=== PATIENT | female | born 1975 | race Caucasian/White ===

== ENCOUNTER 2017-07-16 09:28 | Emergency (ER) | payer OTHER ==
[2017-07-16 09:42] VITALS: BP 137/81
[2017-07-16] MEDS ORDERED: Acetaminophen TAB* 325 MG PO ONE (10:50)
--- NOTE | 2017-07-16 10:56 | UC ---
Throat Pain/Nasal Oswaldo HPI - HPI Summary HPI Summary: 2 weeks of left maxillary sinus pain-seen dentist how help see was grinding her teeth they took x-ray and see no abscess or cavity per the patient - History of Current Complaint Chief Complaint: UCGeneralIllness Stated Complaint: RESP ISSUE Time Seen by Provider: 07/16/17 10:47 Hx Obtained From: Patient Hx Last Menstrual Period: Now ?: No Onset/Duration: Gradual Onset, Lasting Weeks Severity: Moderate Pain Intensity: 6 Pain Scale Used: 0-10 Numeric Cough: None Related History: Smoking - Allergies/Home Medications Allergies/Adverse Reactions: Allergies Allergy/AdvReac Type Severity Reaction Status Date / Time Ibuprofen Allergy Severe Difficulty Verified 07/16/17 09:42 Breathing Penicillins Allergy Severe Anaphylatic Verified 07/16/17 09:42 Shock Naltrexone AdvReac See Comment Verified 07/16/17 09:42 Home Medications: Home Medications Bupropion XL* [Wellbutrin XL *] 150 mg PO DAILY 07/16/17 [History Confirmed 05/23] DULoxetine DR CAP* [Cymbalta CAP*] 60 mg PO DAILY 07/16/17 [History Confirmed ] PMH/Surg Hx/FS Hx/Imm Hx Previously Healthy: Yes Psychological History: Depression Other History Of: Negative For: Anticoagulant Therapy - Surgical History Surgical History: Yes Surgery Procedure, Year, and Place: CYST REMOVAL - Family History Known Family History: Positive: Diabetes Family History: NON CONTRIBUTORY - Social History Occupation: Employed Part-time Lives: With Family Alcohol Use: None Alcohol Amount: stopped alcohol 10/2016, stopped Herion 2015 Substance Use Type: None Substance Use Comment - Amount & Last Used: Hx of abuse, clean for months Smoking Status (MU): Current Every Day Smoker Type: Cigarettes Amount Used/How Often: 4 cig./day - Immunization History Most Recent Influenza Vaccination: NONE Most Recent Tetanus Shot: UNK Most Recent Pneumonia Vaccination: "years ago" Review of Systems Constitutional: Negative Skin: Negative Eyes: Negative ENT: Negative, Sinus Pain/Tenderness - left maxillary tenderness Respiratory: Negative Cardiovascular: Negative Gastrointestinal: Negative Genitourinary: Negative Motor: Negative Neurovascular: Negative Musculoskeletal: Negative Neurological: Negative Psychological: Negative Is Patient Immunocompromised?: No All Other Systems Reviewed And Are Negative: Yes Physical Exam Triage Information Reviewed: Yes Appearance: Well-Appearing, No Pain Distress, Well-Nourished Vital Signs: Initial Vital Signs Temp 97.9 F 07/16/17 09:36 Pulse 104 07/16/17 09:36 Resp 20 07/16/17 09:36 BP 137/81 07/16/17 09:36 Pulse Ox 100 07/16/17 09:36 Vital Signs Reviewed: Yes Eye Exam: Normal Eyes: Positive: Conjunctiva Clear ENT Exam: Normal ENT: Positive: Normal ENT inspection, Hearing grossly normal, Pharynx normal, TMs normal, Sinus tenderness - left maxillary pain, Uvula midline. Negative: Nasal congestion, Nasal drainage, Tonsillar swelling, Tonsillar exudate, Trismus , Muffled voice, Hoarse voice Dental Exam: Normal Neck exam: Normal Neck: Positive: Supple, Nontender, No Lymphadenopathy Respiratory Exam: Normal Respiratory: Positive: Chest non-tender, Lungs clear, Normal breath sounds, No respiratory distress, No accessory muscle use Cardiovascular Exam: Normal Cardiovascular: Positive: RRR, No Murmur, Pulses Normal, Brisk Capillary Refill Musculoskeletal Exam: Normal Musculoskeletal: Positive: Strength Intact, ROM Intact, No Edema Neurological Exam: Normal Neurological: Positive: Alert, Muscle Tone Normal Psychological Exam: Normal Skin Exam: Normal Diagnostics - Radiology No standard instances Xray Interpretation: Positive (See Comments) - incidental finding of a amee lesion not seen in ct of 2016 Radiology Interpretation Completed By: Radiologist Throat Pain/Nasal Course/Dx - Course Assessment/Plan: flonase, tylenol, follow with [place] Guerrero a mouth guard for teeth grinding - Differential Dx/Diagnosis Provider Diagnoses: Facial pain (left maxilla area) amee lesion Discharge - Discharge Plan Condition: Stable Disposition: HOME Prescriptions: Fluticasone NASAL SPRAY 50MCG* [Flonase NASAL SPRAY 50MCG*] 2 spray BOTH NARES DAILY #1 btl Patient Education Materials: Atypical Facial Pain (ED) Referrals: Derrek Fontaine MD [Primary Care Provider] - 1 Week
--- NOTE | 2017-07-16 11:55 | RAD ---
Indication: Oral pain. Shooting and throbbing pain worse at night. Congestion, sneezing, coughing. Comparison: April 05, [address] Technique: Noncontrast CT paranasal sinuses with multiplanar reformation. Report: Artifact from dental amalgam. 1.9 cm AP by 2.7 cm transverse heterogeneous density lesion at the amee with significant central and peripheral hyperdensity. Negative for significant mass effect with the surrounding basal cisterns and fourth ventricle preserved. This lesion is new compared with the April 05, [address] Clear paranasal sinuses. Patent infundibula of the anterior ostiomeatal units. Negative for septal deviation. Patent choana and unremarkable nasopharyngeal mucosal space contours. Unremarkable orbital contents. No suggestion of inflammatory or neoplastic osseous lesions within the [id number]. IMPRESSION: 1. Negative for paranasal sinus disease. 2. Incidental indeterminant lesion at the amee without mass effect although new compared with the April 05, 2016 CT. Contrast-enhanced MRI of the brain suggested for further assessment.
== END 2017-07-16 12:23 | disposition home or self-care (01) ==
LOC: UCEAST 09:28
DX: G50.1 Atypical facial pain (principal); G93.9 Disorder of brain, unspecified; F32.9 Major depressive disorder, single episode, unspecified; Z88.6 Allergy status to analgesic agent; Z88.0 Allergy status to penicillin; F17.210 Nicotine dependence, cigarettes, uncomplicated
CPT/HCPCS: 70486; 99212; A9270-GY; G0463

== ENCOUNTER 2019-05-25 00:32 | Emergency (ER) | payer MEDICARE, MEDICAID ==
--- NOTE | 2019-05-25 00:42 | ED ---
Psychiatric Complaint - HPI Summary HPI Summary: 44-year-old with a significant past medical history of heroin and alcohol abuse, alcoholic hepatitis, depression, suicidal ideation and depression presents to the emergency department today with suicidal ideation. She states the last 2 days she is felt suicidal and had thoughts of killing herself and called an ambulance to come to the emergency department for mental health evaluation as she felt she would hurt herself at home. States she does not have a plan to kill herself. She denies homicidal ideation. She states she s felt significantly more depressed since she had a stroke 4 years ago. She endorses at self-harm including cutting. She says she recently inflicted a small superficial wound to her left wrist 2 days ago. She denies smoking or recreational drug use. She admits to having a few drinks yesterday. She believes she will not go into alcohol withdrawal during this visit. Prior to arrival she told EMS she had palpitations but she feels asymptomatic upon arrival to the emergency department. She denies recent medication changes. She states she lives at home with her and that there are firearms at home. She denies any physical pain or fever, chest pain, abdominal pain, rash. - History Of Current Complaint Time Seen by Provider: 05/25/19 00:41 Hx Obtained From: Patient Hx Last Menstrual Period: Now Onset/Duration: Gradual Onset Timing: Constant Severity Initially: Severe Severity Currently: Severe Character: Depressed, Fearful, Anxious Aggravating Factor(s): Recent Stress Alleviating Factor(s): Nothing Associated Signs And Symptoms: Positive: Sleep Disturbance, Social Withdrawal Related History: Positive For: Prior Psychiatric Issues Has Suicidal: Reports: Thoughts, Demonstrates Gesture, Has Prior Attempt(s) Has Homicidal: Denies: Thoughts, With A Plan, Demonstrates Gesture - Risk Factor(s) Completed Suicide Risk Factors: White [place] Citizen - Allergies/Home Medications Allergies/Adverse Reactions: Allergies Allergy/AdvReac Type Severity Reaction Status Date / Time MS Ibuprofen [Ibuprofen] Allergy Severe Difficulty Verified 07/16/17 09:42 Breathing MS Penicillins [Penicillins] Allergy Severe Anaphylatic Verified 07/16/17 09:42 Shock MS Naltrexone [Naltrexone] AdvReac See Comment Verified 07/16/17 09:42 PMH/Surg Hx/FS Hx/Imm Hx Endocrine/Hematology History: Reports: Hx Diabetes - type 2 - diet controlled Denies: Hx Anticoagulant Therapy, Hx Thyroid Disease Cardiovascular History: Denies: Hx Hypertension, Hx Pacemaker/ICD Respiratory History: Denies: Hx Asthma, Hx Chronic Obstructive Pulmonary Disease (COPD) GI History: Reports: Other GI Disorders - ETOH Hepatitis Denies: Hx Ulcer History: Denies: Hx Dialysis, Hx Renal Disease Sensory History: Reports: Hx Contacts or Glasses Denies: Hx Hearing Aid Opthamlomology History: Reports: Hx Contacts or Glasses Neurological History: Denies: Hx Dementia, Hx Seizures, Other Neuro Impairments/Disorders Psychiatric History: Reports: Hx Depression, Hx Substance Abuse Denies: Hx Panic Disorder - Surgical History Surgery Procedure, Year, and Place: CYST REMOVAL Infectious Disease History: Denies: Hx Clostridium Difficile, Hx Hepatitis, Hx Human Immunodeficiency Virus (HIV), Hx of Known/Suspected MRSA, Hx Shingles, Hx Tuberculosis, Hx Known/ Suspected VRE, Hx Known/Suspected VRSA, History Other Infectious Disease - Family History Known Family History: Positive: Diabetes Family History: NON CONTRIBUTORY - Social History Alcohol Use: None Alcohol Amount: stopped alcohol 10/2016, stopped Herion 2015 Hx Substance Use: Yes Substance Use Type: Reports: None Substance Use Comment - Amount & Last Used: Hx of abuse, clean for months Hx Tobacco Use: Yes Smoking Status (MU): Current Every Day Smoker Type: Cigarettes Amount Used/How Often: 4 cig./day Review of Systems Constitutional: Negative Eyes: Negative Cardiovascular: Negative Respiratory: Negative Gastrointestinal: Negative Genitourinary: Negative Musculoskeletal: Negative Skin: Negative Neurological: Negative Psychological: Normal All Other Systems Reviewed And Are Negative: Yes Physical Exam Triage Information Reviewed: Yes Vital Signs Reviewed: Yes Appearance: Positive: Well-Appearing, No Pain Distress, Well-Nourished, Obese Skin: Positive: Warm, Skin Color Reflects Adequate Perfusion Head/Face: Positive: Normal Head/Face Inspection Eyes: Positive: EOMI, OLIVER, Other: - Patient has anisocoria which she states she is always had. Her left pupil is larger than the right pupil. ENT: Positive: Hearing grossly normal Respiratory/Lung Sounds: Positive: Clear to Auscultation, Breath Sounds Present Cardiovascular: Positive: RRR, S1, S2 Abdomen Description: Positive: Nontender Bowel Sounds: Positive: Present Neurological: Positive: Sensory/Motor Intact, Alert, Oriented to Person Place, Time, Normal Gait, Speech Normal Psychiatric: Positive: Normal, Affect/Mood Appropriate, Other - Patient makes good eye contact during conversation. AVPU Assessment: Alert Procedures - Sedation Patient Received Moderate/Deep Sedation with Procedure: No Diagnostics - Laboratory Result Diagrams: 05/25/19 00:51 05/25/19 00:51 Lab Statement: Any lab studies that have been ordered have been reviewed, and results considered in the medical decision making process. Course/Dx - Course Course Of Treatment: Patient was evaluated in the emergency department today for suicidal ideation. The patient was seen and examined. Due to the patient' s complaint of palpitations on arrival to the emergency department an EKG was done which showed sinus tachycardia at a rate of 108 bpm. Normal axis with no ST elevation or T-wave inversion. There are Q waves in the inferior leads however these are unchanged when compared to prior EKG done on April 09, 2016. upon arrival to the emergency department she was placed in a safe room. She was placed under constant observation. She was changed into hospital scrubs and her valuables were collected and put in a locked box. Laboratory studies including urinalysis and toxicology were ordered for medical clearance. Laboratory results returned showing no evidence for leukocytosis with a white blood cell count of 4.1. 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 She has mild electrolyte disturbances such as a sodium of 133, potassium of 3.3, chloride of 93. She is currently asymptomatic electrolyte abnormalities. She has an anion gap of 17 which is likely due to her blood alcohol level of 387. Her AST is 194 and her ALP is 119 which are elevated however these are also her baseline. The rest for toxicology screening came back as negative. She was medically cleared for evaluation but must be observed for approximately 15 hours in order to be legally sober and qualified for mental health evaluation. Patient was signed out to Dr. Ventura Abbott at 0216 this morning. - Differential Dx/Clinical Impression Differential Diagnosis/HQI/PQRI: Positive: Acute Psychosis, Alcohol Intoxication , Anxiety, Depression, Suicidal Ideation, Suicidal Gesture Provider Diagnosis: Depression Discharge ED - Sign-Out/Discharge Documenting (check all that apply): Sign-Out Patient Signing out patient TO: Ventura Abbott Receiving patient FROM: Kaz Madden - Discharge Plan Condition: Stable Referrals: Julita Mcdaniel MD [Primary Care Provider] - - Billing Disposition and Condition Condition: STABLE
[2019-05-25 00:56] LABS: ABS Lymphocytes 1.6 10^3/ul (1.0-4.8); ABS Monocytes 0.4 10^3/ul (0-0.8); Eosinophil % 0.6 %; Hematocrit 42 % (35-47); Hemoglobin 14.5 g/dL (12.0-16.0); Lymphocyte % 40.3 %; Mean Corpuscular HGB Conc 35 g/dL (31-36); Mean Corpuscular Hemoglobin 36 pg (27-31); Mean Corpuscular Volume 104 fL (80-97); Platelet Count 115 10^3/uL (150-450); Red Blood Count 4.02 10^6 /uL (3.70-4.87); Red Cell Distribution Width 13 % (10-15); White Blood Count 4.1 10^3/uL (3.5-10.8)
[2019-05-25 01:24] LABS: ALT 119 U/L (7-52); AST 194 U/L (13-39); Acetaminophen < 15 mcg/mL; Albumin 4.1 g/dL (3.2-5.2); Albumin/Globulin Ratio 1.1 (1-3); Alcohol 387 mg/dL (<10); Alkaline Phosphatase 90 U/L (34-104); Anion Gap 17 mmol/L (2-11); BUN/Creatinine Ratio 6.5 (8-20); Blood Urea Nitrogen 4 mg/dL (6-24); CO2 Carbon Dioxide 23 mmol/L (22-32); Calcium 8.7 mg/dL (8.6-10.3); Chloride 93 mmol/L (101-111); EGFR African American 127.1 (>60); EGFR Non-African American 105.1 (>60); Globulin 3.9 g/dL (2-4); Glucose 88 mg/dL (70-100); Potassium 3.3 mmol/L (3.5-5.0); Salicylate < 2.50 mg/dL (<30); Sodium 133 mmol/L (135-145)
[2019-05-25 01:38] LABS: TSH (Thyroid Stimulating Horm) 1.56 mcIU/mL (0.34-5.60)
[2019-05-25 02:15] LABS: Urine Appearance Cloudy; Urine Bilirubin Negative (Negative); Urine Blood 3+ (Negative); Urine Color Yellow; Urine Glucose Negative (Negative); Urine Ketones 2+ (Negative); Urine Nitrite Negative (Negative); Urine Protein Negative (Negative); Urine Specific Gravity 1.004 (1.010-1.030); Urine Urobilinogen Negative (Negative)
[2019-05-25 02:18] LABS: Urine Bacteria 1+ (Absent); Urine Red Blood Cell Trace(0-2/hpf) (Absent); Urine Squamous Epithelial Cell Present (Absent); Urine White Blood Cell Trace(0-5/hpf) (Absent)
--- NOTE | 2019-05-25 02:22 | ED ---
Progress - Progress Note Progress Note: Pt is a signout from LYUDMILA Bull, pending E clearance. Course/Dx - Course Course Of Treatment: Pt is a signout from LYUDMILA Bull, pending MHE clearance. Pt will be signed out to Dr. Uriarte at 0700 pending E clearance. - Diagnoses Provider Diagnoses: Alcohol abuse Discharge ED - Sign-Out/Discharge Documenting (check all that apply): Sign-Out Patient, Receiving Sign-Out Signing out patient TO: Kathie Uriarte Receiving patient FROM: Kaz Madden - Discharge Plan Condition: Stable Disposition: HOME Referrals: Julita Mcdaniel MD [Primary Care Provider] - - Billing Disposition and Condition Condition: STABLE Disposition: Home - Attestation Statements Document Initiated by Natalyaibe: Yes Documenting Scribe: Shannan Long Provider For Whom Paige is Documenting (Include Credential): Ventura Abbott MD. Scribe Attestation: Shannan Ferrer scribed for Ventura Abbott MD. on 05/25/19 at 1840. Scribe Documentation Reviewed: Yes Provider Attestation: The documentation as recorded by the Shannan landin accurately reflects the service I personally performed and the decisions made by , Ventura Abbott MD. Status of Scribe Document: Viewed
[2019-05-25 02:40] LABS: Urine Benzodiazepine Screen None Detected (None Detect); Urine Opiates Screen None Detected (None Detect)
[2019-05-25] MEDS: Nicotine* 2MG (FRUIT FLAVOR) GUM PO PRN ×2 (02:49→08:50)
--- NOTE | 2019-05-25 07:36 | ED ---
Progress - Progress Note Progress Note: Pt is received as a sign out from at 0700 05/25/19 shift change pending medical clearance and mental health evaluation. Patient sober and appropriate for evaluation at 11 am 1420 - Patient's case was reviewed by Dr. Menard. Patient will be discharged to home with Dx of alcohol abuse. Course/Dx - Course Course Of Treatment: Pt is a signout from LYUDMILA Bull, pending MHE clearance. Pt will be signed out to Dr. Uriarte at 0700 pending MHE clearance. Patient was medically cleared and received MHE. 1420 - Patient's case was reviewed by Dr. Menard. Patient will be discharged to home with Dx of alcohol abuse. - Diagnoses Provider Diagnoses: Alcohol abuse - Provider Notifications Discussed Care Of Patient With: Caleb Menard Time Discussed With Above Provider: 14:20 Instructed by Provider To: Other - 1420 - Patient's case was reviewed by Dr. Menard. Patient will be discharged to home with Dx of alcohol abuse. Discharge ED - Sign-Out/Discharge Documenting (check all that apply): Patient Departure - discharge - Discharge Plan Condition: Stable Disposition: HOME Referrals: Julita Mcdaniel MD [Primary Care Provider] - - Billing Disposition and Condition Condition: STABLE Disposition: Home - Attestation Statements Document Initiated by Paige: Yes Documenting Scribe: KAT ADRIAN Provider For Whom Paige is Documenting (Include Credential): ISAI URIARTE MD Scribe Attestation: KAT Ferrer, scribed for ISAI URIARTE MD on 05/25/19 at 1436. Scribe Documentation Reviewed: Yes Provider Attestation: The documentation as recorded by the KAT landin accurately reflects the service I personally performed and the decisions made by , ISAI URIARTE MD Status of Scribe Document: Viewed
[2019-05-25 15:06] VITALS: BP 148/92
== END 2019-05-25 15:05 | disposition home or self-care (01) ==
LOC: ED 00:32
DX: F10.10 Alcohol abuse, uncomplicated (principal); E11.9 Type 2 diabetes mellitus without complications; F32.9 Major depressive disorder, single episode, unspecified; F17.210 Nicotine dependence, cigarettes, uncomplicated; Z88.6 Allergy status to analgesic agent; Z88.0 Allergy status to penicillin; Z88.8 Allergy status to other drugs, medicaments and biological substances; Z86.73 Personal history of transient ischemic attack (TIA), and cerebral infarction without residual deficits; Z79.899 Other long term (current) drug therapy
CPT/HCPCS: 36415; 80053; 80307; 80320; 80329; 81003; 81015; 84443; 85025; 87086; 93005; 99285; A9270-GY; G0480

== ENCOUNTER 2019-07-01 10:04 | Inpatient (IN) | payer MEDICARE, MEDICAID ==
--- NOTE | 2019-07-01 10:42 | ED ---
Skin Complaint - HPI Summary HPI Summary: The patient is a 44 y/o F [facility] by female with a chief complaint of yellow tinting of the skin and eyes onset eleven days ago. She reports that she has a history of alcoholism and last drank thirteen days ago but had been drinking since the beginning of May when she found a stash of alcohol in her house, and she would take swigs of the alcohol throughout the day. Two days following her last drink, she noticed that her skin became jaundiced and pruritic, and her urine is brown in appearance. She endorses lethargy, but she denies any pale stools, abdominal pain, nausea, vomiting, CP, SOB, cough, fevers, or chills. PMHx: DM, central pontine myelinolysis, hepatitis due to alcohol abuse, depression. Current every day smoker, EtOH abuse, history of heroin use. Medications reviewed. Allergies noted. - History of Current Complaint Chief Complaint: EDGeneral Time Seen by Provider: 07/01/19 10:33 Stated Complaint: DETOX SYMPTOMS PER PT Hx Obtained From: Patient Hx Last Menstrual Period: Now Onset/Duration: Started Days Ago - 11, Still Present Skin Exposure Onset/Duration: Days Ago Timing: Constant Onset Severity: Mild Current Severity: Moderate Pain Intensity: 0 Pain Scale Used: 0-10 Numeric Skin Location: Diffuse, Other: - eyes Character: Pruritus Aggravating Symptom(s): Nothing Alleviating Symptom(s): Nothing Associated Signs & Symptoms: Negative Related History: Other: - alcohol abuse - Additional Pertinent History Primary Care Physician: [id number] - Allergy/Home Medications Allergies/Adverse Reactions: Allergies Allergy/AdvReac Type Severity Reaction Status Date / Time ibuprofen Allergy Difficulty Verified 07/01/19 10:07 Breathing naltrexone Allergy Shortness Verified 07/01/19 10:07 of Breath Penicillins Allergy Anaphylatic Verified 07/01/19 10:07 Shock PMH/Surg Hx/FS Hx/Imm Hx Endocrine/Hematology History: Reports: Hx Diabetes - type 2 - diet controlled Denies: Hx Anticoagulant Therapy, Hx Thyroid Disease Cardiovascular History: Denies: Hx Hypertension, Hx Pacemaker/ICD Respiratory History: Denies: Hx Asthma, Hx Chronic Obstructive Pulmonary Disease (COPD) GI History: Reports: Other GI Disorders - ETOH Hepatitis Denies: Hx Ulcer History: Denies: Hx Dialysis, Hx Renal Disease Sensory History: Reports: Hx Contacts or Glasses Denies: Hx Hearing Aid Opthamlomology History: Reports: Hx Contacts or Glasses Neurological History: Reports: Other Neuro Impairments/Disorders - central pontine myelinolysis Denies: Hx Dementia, Hx Seizures Psychiatric History: Reports: Hx Depression, Hx Substance Abuse Denies: Hx Eating Disorder, Hx Panic Disorder, Hx of Violent Episodes Against Others - Surgical History Surgical History: Yes Surgery Procedure, Year, and Place: CYST REMOVAL Infectious Disease History: No Infectious Disease History: Denies: Hx Clostridium Difficile, Hx Hepatitis, Hx Human Immunodeficiency Virus (HIV), Hx of Known/Suspected MRSA, Hx Shingles, Hx Tuberculosis, Hx Known/ Suspected VRE, Hx Known/Suspected VRSA, History Other Infectious Disease, Traveled Outside the [place] in Last 30 Days - Family History Known Family History: Positive: Diabetes - Social History Alcohol Use: Occasionally Alcohol Amount: history of alcoholism, last use 06/28/19 Hx Substance Use: Yes Substance Use Type: Reports: None Substance Use Comment - Amount & Last Used: Hx of abuse, clean for months Hx Tobacco Use: Yes Smoking Status (MU): Current Every Day Smoker Type: Cigarettes Amount Used/How Often: 4 cig./day Review of Systems Positive: Other - lethargy. Negative: Fever, Chills Positive: Other - yellow-tinting to eyes Negative: Chest Pain Negative: Shortness Of Breath, Cough Negative: Abdominal Pain, Vomiting, Nausea Positive: other - brown urine Negative: Other - pale stool Positive: Other - yellow tinting to skin, pruritic skin All Other Systems Reviewed And Are Negative: Yes Physical Exam - Summary Physical Exam Summary: Constitutional: Well-developed, Well-nourished, Alert. (-) Distressed Skin: Warm, Dry, Jaundiced HENT: Normocephalic; Atraumatic Eyes: Scleral icterus Neck: Musculoskeletal ROM normal neck. (-) JVD, (-) Stridor, (-) Tracheal deviation Cardio: Rhythm regular, rate normal, Heart sounds normal; Intact distal pulses; The pedal pulses are 2+ and symmetric. Radial pulses are 2+ and symmetric. (-) Murmur Pulmonary/Chest wall: Effort normal. (-) Respiratory distress, (-) Wheezes, (-) Rales Abd: Soft, (-) tenderness, (+) Mild distension, (-) Guarding, (-) Rebound Musculoskeletal: (+) 1+ Pitting edema Lymph: (-) Cervical adenopathy Neuro: Alert, Oriented x3 Psych: Mood and affect Normal Triage Information Reviewed: Yes Vital Signs On Initial Exam: Initial Vitals Temp Pulse Resp BP Pulse Ox 97.6 F 106 16 115/74 95 07/01/19 10:06 07/01/19 10:06 07/01/19 10:06 07/01/19 10:06 07/01/19 10:06 Vital Signs Reviewed: Yes Procedures - Sedation Patient Received Moderate/Deep Sedation with Procedure: No Diagnostics - Vital Signs Vital Signs Temp Pulse Resp BP Pulse Ox 07/01/19 10:06 97.6 F 106 16 115/74 95 - Laboratory Result Diagrams: 07/01/19 10:40 07/01/19 20:13 Lab Statement: Any lab studies that have been ordered have been reviewed, and results considered in the medical decision making process. - CT Abd/Pel CT CT Interpretation Completed By: Radiologist Summary of CT Findings: Impression: 1. Small dependent bilateral lower lobe infiltrates and small right pleural effusion. 2. Enlarged heterogeneous liver with scattered areas of decreased attenuation consistent with diffuse hepatocellular disease. There is with some mass effect on the inferior vena cava and hepatic veins suggesting the possibility of hepatitis or a mass. This can be further evaluated with an MRI of the liver without and with contrast. 3. The portal vein is enlarged although no portal vein thrombosis is seen to correlate with the prior ultrasound findings which may have been artifactual due to slow flow. 4. Small to moderate amount of ascites. 5. Mild thickening of the wall of the ascending colon suggesting the possibility of colitis. 6. Delayed excretion of renal contrast recommends hydration. ED physician has reviewed this report. - Ultrasound Abd US Ultrasound Interpretation Completed By: Radiologist Summary of Ultrasound Findings: Impression: 1. Hepatomegaly with heterogeneous echotexture and nodular contour suggestive of cirrhosis. 2. Partial thrombosis of the main portal vein extending into the right and left portal veins. There is reversed flow in the portal vein which is enlarged consistent with portal hypertension. 3. The gallbladder is filled with sludge. ED physician has reviewed this report. Re-Evaluation - Re-Evaluation First Eval Re-Evaluation Time: 12:25 Comment: Patient's labs indicate need for admission, still pending US, will consult hospitalist Course/Dx - Course Course Of Treatment: Patient is a 44 year-old female with a history of alcoholism presenting with diffusely yellow skin and eyes that is also pruritic onset eleven days ago. She denies any pale stools, abdominal pain, nausea, vomiting, CP, SOB, cough, fevers, or chills, but has been experiencing brown- appearing urine and lethargy. Last drink was two days prior to onset of symptoms after finding alcohol in her home with consistent drinking since early May. Physical exam reveals jaundiced skin, scleral icterus, 1+ pitting edema, and a mildly distended abdomen. Blood work reveals WBCs of 13.6, MCV of 103, MCH of 37, RDW of 16, platelets of 107, MPV of 11.1. INR of 1.56, sodium of 118, potassium of 3.0, chloride of 78, BUN of 40, creatinine of 1.63, glucose of 127, calcium of 8.0, total bili of 18.90, AST of 247, ALT of 109, alkaline phosphatase of 248, total protein of 6.2, albumin of 2.8, and lipase of 287. Toxicology report shows serum alcohol <10. Serology report reveals hepatitis interpretation of 45.12. Abdomen ultrasound impression reveals: 1. Hepatomegaly with heterogeneous echotexture and nodular contour suggestive of cirrhosis. 2. Partial thrombosis of the main portal vein extending into the right and left portal veins. There is reversed flow in the portal vein which is enlarged consistent with portal hypertension. 3. The gallbladder is filled with sludge. Patient administered potassium for hypokalemia. Dr. Aguilar from the hospitalist services has accepted the patient for admission. He recommends Abdomen/Pelvic CT with contrast. Abd/Pel impression reveals: 1. Small dependent bilateral lower lobe infiltrates and small right pleural effusion. 2. Enlarged heterogeneous liver with scattered areas of decreased attenuation consistent with diffuse hepatocellular disease. There is with some mass effect on the inferior vena cava and hepatic veins suggesting the possibility of hepatitis or a mass. This can be further evaluated with an MRI of the liver without and with contrast. 3. The portal vein is enlarged although no portal vein thrombosis is seen to correlate with the prior ultrasound findings which may have been artifactual due to slow flow. 4. Small to moderate amount of ascites. 5. Mild thickening of the wall of the ascending colon suggesting the possibility of colitis. 6. Delayed excretion of renal contrast recommends hydration. Patient understands need for admission and agrees with plan. Diagnosis of alcoholic hepatitis, jaundice. - Diagnoses Provider Diagnoses: Alcoholic hepatitis, Jaundice - Physician Notifications Discussed Care Of Patient With: Artie Aguilar - hospitalist Time Discussed With Above Provider: 12:50 Instructed by Provider To: Other - I discussed the patients case with Dr. Aguilar, who accepts the patient for admission. Discharge ED - Sign-Out/Discharge Documenting (check all that apply): Patient Departure - Patient accepted for admission by Dr. Aguilar. - Discharge Plan Condition: Stable Disposition: ADMITTED TO [facility] - Billing Disposition and Condition Condition: STABLE Disposition: Admitted to [facility] - Attestation Statements Document Initiated by Paige: Yes Documenting Scribe: Ivelisse Zepeda Provider For Whom Paige is Documenting (Include Credential): Dr. Caryl Le MD Scribe Attestation: Ivelisse Ferrer scribed for Dr. Caryl Le MD on 07/01/19 at 2304. Scribe Documentation Reviewed: Yes Provider Attestation: The documentation as recorded by the Ivelisse landin accurately reflects the service I personally performed and the decisions made by me, Dr. Caryl Le MD Status of Scribifeanyi Document: Viewed
[2019-07-01 10:53] LABS: Hematocrit 40 % (35-47); Hemoglobin 14.3 g/dL (12.0-16.0); Mean Corpuscular HGB Conc 36 g/dL (31-36); Mean Corpuscular Hemoglobin 37 pg (27-31); Mean Corpuscular Volume 103 fL (80-97); Mean Platelet Volume 11.1 fL (7.4-10.4); Platelet Count 107 10^3/uL (150-450); Red Cell Distribution Width 16 % (10-15); White Blood Count 13.6 10^3/uL (3.5-10.8)
[2019-07-01 10:55] LABS: INR 1.56 (0.82-1.09)
[2019-07-01 11:07] LABS: ALT 109 U/L (7-52); AST 247 U/L (13-39); Albumin 2.8 g/dL (3.2-5.2); Albumin/Globulin Ratio 0.8 (1-3); Alkaline Phosphatase 248 U/L (34-104); BUN/Creatinine Ratio 24.5 (8-20); Blood Urea Nitrogen 40 mg/dL (6-24); CO2 Carbon Dioxide 31 mmol/L (22-32); Chloride 78 mmol/L (101-111); EGFR African American 41.7 (>60); EGFR Non-African American 34.4 (>60); Globulin 3.4 g/dL (2-4); Glucose 127 mg/dL (70-100); Total Protein 6.2 g/dL (6.4-8.9)
[2019-07-01 11:12] LABS: Anion Gap 9 mmol/L (2-11); Sodium 118 mmol/L (135-145)
[2019-07-01 11:27] LABS: ABS Basophils 0.1 10^3/ul (0-0.2); ABS Lymphocytes 6.6 10^3/ul (1.0-4.8); ABS Monocytes 0.2 10^3/ul (0-0.8); ABS Neutrophils 6.6 10^3/ul (1.5-7.7); Eosinophil % 0.3 %; Lymphocyte % 48.8 %; Nucleated Red Blood Cells % 0.1
[2019-07-01 11:42] LABS: Alcohol < 10 mg/dL (<10)
[2019-07-01] MEDS ORDERED: Potassium Chlor TAB* 20 MEQ TAB.ER PO ONE (12:26)
[2019-07-01 12:54] LABS: Magnesium 2.4 mg/dL (1.9-2.7)
[2019-07-01] MEDS ORDERED: Iodixanol* (CONTRAST) 320 MG/ML 100 ML SDV IV ONE (13:50)
[2019-07-01] MEDS ORDERED: NS 0.9% 500 ML* 500 ML IV ONE (15:47)
[2019-07-01] MEDS ORDERED: Ondansetron INJ* 2 MG/ML VIAL IV PRN (16:13)
[2019-07-01 16:27] LABS: Total Bilirubin 18.9 mg/dL (0.2-1.0)
[2019-07-01 17:16] LABS: Calcium 7.8 mg/dL (8.6-10.3); EGFR African American 46.6 (>60); EGFR Non-African American 38.5 (>60); Potassium 3.2 mmol/L (3.5-5.0)
[2019-07-01 17:45] LABS: Hepatitis B Surface Antigen Nonreactive (Nonreactive)
[2019-07-01 18:02] LABS: Hepatitis C Antibody Negative (Negative)
[2019-07-01] MEDS: KCL 20 MEQ/100 ML IVPREMIX* 20 MEQ/100 ML BAG IV SCH ×2 (18:02→22:36)
[2019-07-01 18:26] LABS: Urine Appearance Clear; Urine Bilirubin 2+ (Negative); Urine Blood Negative (Negative); Urine Color Amber; Urine Glucose Negative (Negative); Urine Ketones Negative (Negative); Urine Nitrite Negative (Negative); Urine Protein Negative (Negative); Urine Specific Gravity 1.057 (1.010-1.030); Urine Urobilinogen Positive (Negative)
[2019-07-01 19:34] LABS: Cholesterol 153 mg/dL; HDL Cholesterol 4.3 mg/dL; LDL Cholesterol 92 mg/dL; Triglycerides 282 mg/dL
[2019-07-01 20:43] LABS: BUN/Creatinine Ratio 28.2 (8-20); Calcium 7.8 mg/dL (8.6-10.3); EGFR African American 48.9 (>60); EGFR Non-African American 40.4 (>60); Potassium 3.3 mmol/L (3.5-5.0)
--- NOTE | 2019-07-01 21:17 | PN ---
Hospitalist Progress Note Date of Service: 07/01/19 Patient's Sodium continued to decline on repeat checks for unclear reasons, but mainly due to difficulty with IV access. Discussed with Patient water intake and patient at home states she drinks approximately 120oz of water daily. Fluid Restriction instituted. Patient remains asymptomatic. Urine Studies concentrated in a manner not consistent with solute depletion. Recheck BMP at 2100 and if no improvement or worsening, will need hypertonic saline for cautious sodium increase. Will Transfer to ICU for closer monitoring and possible Hypertonic saline treatment. Case discussed with Chencho.
[2019-07-01] MEDS: traZODone TAB* 100 MG PO SCH (21:44)
[2019-07-01] MEDS: Enoxaparin(*) 100 MG/ML SYR SUBCUT SCH (21:44)
--- NOTE | 2019-07-01 21:54 | HP ---
CC: Dr. Julita Mcdaniel; Dr. Artie Aguilar* ADMISSION HISTORY AND PHYSICAL: DATE OF ADMISSION: 07/01/19 PRIMARY CARE PROVIDER: Dr. Julita Mcdaniel. MY ATTENDING WHILE IN THE HOSPITAL: Dr. Artie Aguilar* (dictated by LYUDMILA Mccarthy). CHIEF COMPLAINT: Jaundice x10 days. HISTORY OF PRESENT ILLNESS: Ms. Tang is a 44-year-old female with a past medical history significant for alcohol abuse, history of alcoholic cirrhosis, and central pontine myelinolysis related to hyponatremia, who presents to the emergency department after approximately 13 days ago she decided to quit drinking. She had not been drinking an excessive amount to that point, mainly sipping alcoholic beverages from a stash she had in the garage several times a day, but then she found that her ex- of complications of alcoholism and she decided to quit drinking entirely. She did not have any withdrawal symptoms, though she does have a history of withdrawal. She, however, 2 days after she stopped drinking, noticed worsening jaundice that came on suddenly, did not get progressively worse. She had no associated abdominal pain, no nausea or vomiting, no fevers or chills. No changes in her medications. No other changes in her diet. The patient states that she has cereal every day and generally a sandwich for lunch or something of that sort. She has never had a history of blood clots. She does not follow with g[facility] video. She has been having daily brown bowel movements without any blood, melena, or taj- colored stools. The patient had no recent sick contacts. No pain with urination. The patient denies IV drug use or abuse. The patient states she never used IV drugs and that she used to abuse heroin, but she only used intranasally. The patient came into the emergency department due to the worsening jaundice, was found to have a bilirubin of 18.9 and sodium of 118 as well as an elevated creatinine, elevated AST and ALT, and elevated alkaline phosphatase. These are in contrast to labs, which she had on 05/25/19, which showed only slightly depressed sodium, slightly elevated AST and ALT, and a normal bilirubin. The patient also has moderately elevated lipase at 287, but no abdominal complaints. The patient had no subjective fevers or chills. Due to the concern, the patient had a liver ultrasound, which showed the possibility of portal vein thrombosis and portal hypertension. She had an abdomen and pelvis CT, which showed the possibility of a mass, but no corresponding thrombosis to the abdominal ultrasound. However, with discordance in the studies, it is unclear what the true story is. Due to concern for severe hepatitis, we were asked to evaluate the patient for admission to the hospital. 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 PAST SURGICAL HISTORY: None. MEDICATIONS: 1. Duloxetine 60 mg p.o. daily. 2. Omeprazole 20 mg p.o. daily. 3. Metoprolol succinate 25 mg p.o. daily. 4. vitamin. 5. Methylphenidate 5 mg p.o. b.i.d. 6. Trazodone 100 mg p.o. bedtime. ALLERGIES: IBUPROFEN, NALTREXONE, PENICILLIN. FAMILY HISTORY: The patient's father had testicular cancer and diabetes, but is otherwise alive and well. The patient's mother is alive and has no known past medical history. The patient has a brother, who is healthy. The patient had a grandmother, who of Alzheimer's and a grandfather who is alive and well. SOCIAL HISTORY: The patient still smokes approximately 10 cigarettes a day. The patient used to heavily abuse alcohol, but quit drinking 10 days ago. The patient used to abuse heroin intranasally, but not recently. The patient is disabled. Used to work [employer]. The patient is to her third and has 2 children. The patient's surrogate decision maker will be her , Scooter Tang. REVIEW OF SYSTEMS: A 10-point review of systems was reviewed and is negative except as above in the HPI, and the patient noting that she has lost weight slowly over the past several months. PHYSICAL EXAMINATION GENERAL: The patient is a 44-year-old markedly jaundiced female, who appears her stated age, sitting in bed, in no acute distress. VITAL SIGNS: At time of evaluation, temperature 97.6, pulse rate 96, respiratory rate 21, oxygen saturation 96% on room air, blood pressure 118/74. HEENT: Head: Normocephalic and atraumatic. Sclerae anicteric. No conjunctival injection. Nasal mucosa moist. Oral mucosa moist. No pharyngeal erythema, discharge or exudate. NECK: Supple, nontender. No lymphadenopathy. No carotid bruits auscultated. No JVD. RESPIRATORY: Clear to auscultation bilaterally. No wheezes, rales, or rhonchi. Good air exchange bilaterally. CARDIAC: Regular rate and rhythm. No clicks, murmurs, gallops, or rubs. Pulses 2+ in the dorsalis pedis, posterior tibials and radial areas. Trace bilateral lower extremity edema noted. ABDOMEN: Soft, slightly distended. Negative fluid waves, nontender to palpation. Negative Colby's sign. No hepatosplenomegaly. No abdominal bruits auscultated. No hepatojugular reflux. GENITOURINARY: No suprapubic or CVA tenderness. SKIN: Jaundice. No other rash. Possible palmar erythema. NEUROLOGIC: Cranial nerves II through XII intact. Wide-based gait. No other signs of ataxia. Alert and oriented x3. Sometimes somewhat slow to respond. PSYCHIATRIC: Pleasant and cooperative. DIAGNOSTIC STUDIES/LAB DATA: Laboratory data: White blood cell count 13.6, hemoglobin 14.3, platelet count 107. INR 1.56. Sodium 118, potassium 3.0, chloride 78, carbon dioxide 31, anion gap 9, BUN 40, creatinine 1.63, glucose 127, calcium 8.0. Magnesium 2.4, bilirubin 1.90, AST 247, ALT 109, alkaline phosphatase 248. Protein 6.2, albumin 2.8, globulin 3.4. Lipase 287, alcohol less than 10, Maddrey's discriminant function 45. Studies: Abdominal ultrasound read as hepatomegaly with heterogeneous architecture and nodular contours suggestive of cirrhosis, partial thrombosis of main portal vein extending into the right and left portal veins. There is a reverse flow in the portal vein, which is enlarged consistent with portal hypertension and gallbladder is filled with sludge. Abdomen and pelvis CT with contrast reads as small dependant bilateral lower lobe infiltrate and small right pleural effusion, enlarged heterogeneous liver. There is a decreased attenuation consistent with diffuse hepatocellular disease. There is some mass affect in the inferior vena cava, hepatic vein suggestive of possible hepatitis or mass, which needs to be further evaluated with MRI of the liver. The portal vein is enlarged, although no portal vein thrombosis is seen with the prior ultrasound findings, which may have been artifactual due to slow flow, mild-to- moderate amount of ascites, mild thickening of the wall of the ascending colon consistent with possibility of colitis, delayed excretion of renal contrast. Recommend hydration. IMPRESSION: Ms. Tang is a 44-year-old female with past medical history significant for alcoholic hepatitis, diabetes mellitus type 2, now resolved, central pontine myelinolysis, and remote history of heroin abuse, who presents to the emergency department with jaundice and was found to be severely hyponatremic and acute hepatitis with possible hepatic vein thrombosis, who is admitted to the hospital for management of her acute hepatitis as well hyponatremia. 1. Acute hepatitis. Combination of alcoholic hepatitis and portal vein thrombosis. The patient will be admitted to the hospital. The patient will be started on prednisone at 40 mg daily for Maddrey's discriminant function of 45. The patient has a poor prognosis from this, so this is possibly not entirely related to alcoholic hepatitis. The patient also has evidence of portal vein thrombosis with conflicting studies. The patient will be started on Lovenox full dose at this time for treatment of this and will be assessed for her response to therapy. The patient has per her report successfully stopped drinking alcohol. This will be reinforced with the patient. She should follow up with outpatient resources as well as Hepatology for management of her cirrhosis. The patient has elevated creatinine. This is unlikely related to hepatorenal syndrome, more likely related to dehydration corresponding to her hyponatremia. 2. Severe hyponatremia. The patient's hyponatremia is likely related to beer potomania, though urine studies at this time, to clarify this, are pending. The patient previously was admitted with a very low sodium and this responded well to fluids; however, the patient may have developed central pontine myelinolysis from this and she will be getting very cautious fluids at this time with a goal of increasing her sodium by 6 daily and will have q.4 hour BMPs to avoid overcorrection avidly. 3. Central pontine myelinolysis. The patient is moderately symptomatic from this and the patient will be continued on her Ritalin for her inattentiveness associated with this as prescribed by Neurology. 4. FEN. The patient will have regular unrestricted diet and fluids gently as above. 5. DVT prophylaxis. The patient will be on Lovenox full dose. 6. Disposition. The patient is admitted inpatient to the hospital. Estimated length of stay will be greater than 2 midnights. TIME SPENT: Approximately 60 minutes was spent on the admission of this patient , 30 of which was spent [id number] with the patient obtaining history and physical and discussing treatment plan. This plan has been discussed with my attending, Dr. Artie Aguilar, he is in agreement. LYUDMILA MCCARTHY [id number]/CPS #: [id number] DEJUAN
[2019-07-02 00:27] LABS: BUN/Creatinine Ratio 26.1 (8-20); EGFR African American 48.9 (>60); EGFR Non-African American 40.4 (>60); Potassium 3.8 mmol/L (3.5-5.0)
[2019-07-02] MEDS: NS 0.9% 1000 ML** 1,000 ML IV SCH ×2 (02:50→13:27)
[2019-07-02 05:55] LABS: ABS Basophils 0.1 10^3/ul (0-0.2); ABS Monocytes 1.4 10^3/ul (0-0.8); ABS Neutrophils 10.4 10^3/ul (1.5-7.7); Eosinophil % 0.1 %; Hematocrit 36 % (35-47); Hemoglobin 12.5 g/dL (12.0-16.0); Lymphocyte % 14.4 %; Mean Corpuscular HGB Conc 35 g/dL (31-36); Mean Corpuscular Hemoglobin 36 pg (27-31); Mean Corpuscular Volume 102 fL (80-97); Mean Platelet Volume 11.1 fL (7.4-10.4); Platelet Count 93 10^3/uL (150-450); Red Blood Count 3.52 10^6 /uL (3.70-4.87); Red Cell Distribution Width 16 % (10-15)
[2019-07-02 06:07] LABS: ALT 104 U/L (7-52); Albumin 2.4 g/dL (3.2-5.2); Albumin/Globulin Ratio 0.8 (1-3); Alkaline Phosphatase 208 U/L (34-104); BUN/Creatinine Ratio 28.1 (8-20); Blood Urea Nitrogen 32 mg/dL (6-24); CO2 Carbon Dioxide 26 mmol/L (22-32); Calcium 7.3 mg/dL (8.6-10.3); Chloride 85 mmol/L (101-111); EGFR African American 62.9 (>60); Globulin 3.1 g/dL (2-4); Glucose 207 mg/dL (70-100); Total Protein 5.5 g/dL (6.4-8.9)
[2019-07-02 06:11] LABS: Sodium 118 mmol/L (135-145)
[2019-07-02 06:37] LABS: Magnesium 2.2 mg/dL (1.9-2.7)
[2019-07-02 06:42] LABS: Anion Gap 7 mmol/L (2-11)
[2019-07-02 06:43] LABS: TSH (Thyroid Stimulating Horm) 1.28 mcIU/mL (0.34-5.60)
[2019-07-02] MEDS: Enoxaparin(*) 100 MG/ML SYR SUBCUT SCH ×2 (07:21→18:35)
[2019-07-02] MEDS: Metoprolol Succinate XL TAB* 25 MG PO SCH (08:21)
[2019-07-02] MEDS: Prenatal Vitamin TAB PO SCH (08:21)
[2019-07-02] MEDS: DULoxetine DR CAP* 60 MG CAP.DR PO SCH (08:21)
[2019-07-02] MEDS: Pantoprazole TAB * 40 MG TAB PO SCH (08:22)
[2019-07-02] MEDS: Methylphenidate TAB* 5 MG PO SCH ×2 (08:28→15:28)
[2019-07-02] MEDS ORDERED: NS 0.9% 1000 ML** 1,000 ML IV ONE (09:22)
--- NOTE | 2019-07-02 09:28 | PN ---
Subjective Date of Service: 07/02/19 Interval History: Abdomen feels cramp and has since 06/18 Feels less thirsty Appetite good Was nauseous last night now improved Objective Active Medications: Acetaminophen (Tylenol Tab*) 650 mg PO Q8H PRN PRN Reason: MILD PAIN or TEMP > 100.4 Duloxetine HCl (Cymbalta Cap*) 60 mg PO DAILY [facility] Last Admin: 07/02/19 08:21 Dose: 60 mg Enoxaparin Sodium (Lovenox(*)) 90 mg SUBCUT Q12H [facility] Last Admin: 07/02/19 07:21 Dose: 90 mg Sodium Chloride (Ns 0.9% 1000 Ml) 1,000 mls @ 100 mls/hr IV PER RATE [facility] Last Admin: 07/02/19 02:50 Dose: 100 mls/hr Sodium Chloride (Ns 0.9% 1000 Ml) 1,000 mls @ 1,000 mls/hr IV .PER RATE ONE Stop: 07/02/19 10:21 Methylphenidate HCl (Ritalin Tab*) 5 mg PO BID@0900,1500 [facility] Last Admin: 07/02/19 08:28 Dose: 5 mg Metoprolol Succinate (Toprol Xl Tab*) 25 mg PO DAILY [facility] Last Admin: 07/02/19 08:21 Dose: 25 mg Multivitamins ( Vitamin Tab*) 1 tab PO DAILY [facility] Last Admin: 07/02/19 08:21 Dose: 1 tab Ondansetron HCl (Zofran Inj*) 4 mg IV Q6H PRN PRN Reason: NAUSEA Pantoprazole Sodium (Protonix Tab*) 40 mg PO DAILY [facility] Last Admin: 07/02/19 08:22 Dose: 40 mg Prednisone (Deltasone Tab*) 40 mg PO DAILY [facility] Last Admin: 07/02/19 08:21 Dose: 40 mg Trazodone HCl (Desyrel Tab*) 100 mg PO BEDTIME [facility] Last Admin: 07/01/19 21:44 Dose: 100 mg Vital Signs - 8 hr 07/02/19 07/02/19 07/02/19 01:30 01:45 02:00 Temperature Pulse Rate 87 88 118 Respiratory 23 14 26 Rate Blood Pressure 124/76 125/62 (mmHg) O2 Sat by Pulse 92 91 91 Oximetry 07/02/19 07/02/1919 02:01 02:15 02:30 Temperature Pulse Rate 109 99 96 Respiratory 20 18 26 Rate Blood Pressure 136/80 125/57 136/84 (mmHg) O2 Sat by Pulse 92 93 90 Oximetry 07/02/19 07/02/19 07/02/19 02:45 03:00 03:15 Temperature Pulse Rate 95 97 94 Respiratory 27 30 28 Rate Blood Pressure 131/85 130/86 122/82 (mmHg) O2 Sat by Pulse 94 93 93 Oximetry 07/02/19 07/02/19 07/02/19 03:30 03:45 04:00 Temperature Pulse Rate 93 95 88 Respiratory 15 17 18 Rate Blood Pressure 127/83 136/86 124/64 (mmHg) O2 Sat by Pulse 94 94 95 Oximetry 07/02/19 07/02/19 07/02/19 04:16 04:30 04:45 Temperature Pulse Rate 115 90 99 Respiratory 15 14 18 Rate Blood Pressure 116/103 131/72 129/69 (mmHg) O2 Sat by Pulse 92 94 94 Oximetry 07/02/19 07/02/19 07/02/19 05:00 05:15 05:30 Temperature Pulse Rate 100 95 93 Respiratory 26 16 18 Rate Blood Pressure 129/51 145/78 121/61 (mmHg) O2 Sat by Pulse 93 96 95 Oximetry 07/02/19 07/02/19 07/02/19 05:45 06:00 06:15 Temperature Pulse Rate 88 91 89 Respiratory 21 27 15 Rate Blood Pressure 126/58 123/60 128/68 (mmHg) O2 Sat by Pulse 95 95 94 Oximetry 07/02/19 07/02/19 07/02/19 06:30 06:45 07:00 Temperature Pulse Rate 97 95 91 Respiratory 26 18 19 Rate Blood Pressure 136/76 124/79 130/78 (mmHg) O2 Sat by Pulse 92 92 93 Oximetry 07/02/19 07/02/19 07/02/19 07:15 07:31 07:34 Temperature 97.8 F Pulse Rate 91 109 Respiratory 16 20 Rate Blood Pressure 133/78 146/81 (mmHg) O2 Sat by Pulse 92 92 Oximetry 07/02/19 07/02/19 07:46 08:00 Temperature Pulse Rate 101 100 Respiratory 20 19 Rate Blood Pressure 135/72 135/77 (mmHg) O2 Sat by Pulse 90 92 Oximetry Oxygen Devices in Use Now: None Appearance: jaundiced, NAD Eyes: - - scleral icterus Ears/Nose/Mouth/Throat: Mucous Membranes Moist Neck: NL Appearance and Movements; NL JVP, Trachea Midline Respiratory: Symmetrical Chest Expansion and Respiratory Effort, Clear to Auscultation Cardiovascular: RRR Abdominal: - - +distention, NTTP, soft Extremities: - - trace-1+ LE edema at ankles Neurological: Alert and Oriented x 3 Result Diagrams: 07/02/19 05:42 07/02/19 05:42 Microbiology and Other Data: Microbiology 07/01/19 22:44 Nasal Screen MRSA (PCR) - Final Nasal Mrsa Not Detected Assess/Plan/Problems-Billing Assessment: 44 yo F h/o EtOH use disorder with recent cessation, DM2, HTN p/w hyponatremia, hyperbilirubinemia found with portal vein thrombosis - Patient Problems (1) Hyponatremia Comment: Suspect multifactor Low effective circulating volume (high ADH state) from cirrhosis as well as true volume depletion in setting of elcohol use Stable with normal saline, will increase normal saline today and repeat this afternoon Can consider midodrine and/or albumin depending on success Urine concentrated and YRN support volume depletion LE edema in setting of portal vein thrombosis (2) Portal vein thrombosis Comment: US c/w portal vein thrombosis but CT abd/pelvis not consistent with thrombosis I think we have to err on the side of treatment, especially because she has cirrhosis which predisposed her to thrombosis. Instituted on lovenox Would benefit from EGD to r/o varices, will discuss with GI optimal timing (3) Hyperbilirubinemia Comment: Hepatitis vs portal vein thrombosis Rate of improvement more c/w alcoholic hepatitis although has no pain other than "cramping" Doubt SBP c/w prednisone, trend daily (4) Alcohol use disorder Comment: not in withdrawal reports last drink around 06/18 (5) YRN (acute kidney injury) Priority: High Comment: imrpoving with fluids suspect pre-renal received contrast conitor for continued improvement (6) Diabetes Comment: Add HbA1c today (7) DVT prophylaxis Comment: lovenox
[2019-07-02 13:10] LABS: HCG Pregnancy 0.84 mIU/mL
[2019-07-02] MEDS: Acetaminophen TAB* 325 MG PO PRN (13:17)
[2019-07-02 13:26] LABS: Potassium Redraw 3.5 mmol/L (3.5-5.0)
[2019-07-02 16:00] LABS: Calcium 7.1 mg/dL (8.6-10.3)
[2019-07-02 16:06] LABS: BUN/Creatinine Ratio 25.9 (8-20); EGFR Non-African American 55.4 (>60)
[2019-07-02 16:09] LABS: Potassium 3.5 mmol/L (3.5-5.0)
[2019-07-02] MEDS: traZODone TAB* 100 MG PO SCH (21:17)
[2019-07-03] MEDS: NS 0.9% 1000 ML** 1,000 ML IV SCH ×3 (00:01→21:10)
[2019-07-03] MEDS: Acetaminophen TAB* 325 MG PO PRN (01:22)
[2019-07-03 05:55] LABS: Albumin 2.4 g/dL (3.2-5.2); Albumin/Globulin Ratio 0.8 (1-3); BUN/Creatinine Ratio 25.8 (8-20); Calcium 7.4 mg/dL (8.6-10.3); EGFR African American 79.6 (>60); EGFR Non-African American 65.8 (>60); Globulin 3.2 g/dL (2-4); Potassium 3.5 mmol/L (3.5-5.0); Total Protein 5.6 g/dL (6.4-8.9)
[2019-07-03 06:00] LABS: Hematocrit 36 % (35-47); Hemoglobin 12.8 g/dL (12.0-16.0); Mean Corpuscular HGB Conc 35 g/dL (31-36); Mean Corpuscular Hemoglobin 36 pg (27-31); Mean Corpuscular Volume 102 fL (80-97); Platelet Count 94 10^3/uL (150-450); Red Blood Count 3.56 10^6 /uL (3.70-4.87); Red Cell Distribution Width 16 % (10-15); White Blood Count 12.5 10^3/uL (3.5-10.8)
[2019-07-03 06:02] LABS: Total Bilirubin 13.2 mg/dL (0.2-1.0)
[2019-07-03 06:26] LABS: ABS Basophils 0.1 10^3/ul (0-0.2); ABS Eosinophils 0.1 10^3/ul (0-0.6); ABS Lymphocytes 3.1 10^3/ul (1.0-4.8); ABS Monocytes 1.3 10^3/ul (0-0.8); ABS Neutrophils 7.9 10^3/ul (1.5-7.7); Eosinophil % 0.7 %; Lymphocyte % 24.7 %
[2019-07-03] MEDS: Enoxaparin(*) 100 MG/ML SYR SUBCUT SCH (06:33)
[2019-07-03] MEDS ORDERED: NS 0.9% 1000 ML** 1,000 ML IV ONE (08:34)
[2019-07-03] MEDS: Prenatal Vitamin TAB PO SCH (08:49)
[2019-07-03] MEDS: Pantoprazole TAB * 40 MG TAB PO SCH (08:49)
[2019-07-03] MEDS: Metoprolol Succinate XL TAB* 25 MG PO SCH (08:50)
[2019-07-03] MEDS: DULoxetine DR CAP* 60 MG CAP.DR PO SCH (08:50)
[2019-07-03] MEDS: Methylphenidate TAB* 5 MG PO SCH ×2 (08:56→14:52)
[2019-07-03] MEDS: Polyethylene Glycol 3350* 17 GM PACKET PO PRN (08:56)
[2019-07-03] MEDS ORDERED: Influenza VAC *QUAD* 2019-20* 0.5 ML SYRINGE IM ONE (09:00)
--- NOTE | 2019-07-03 13:15 | PN ---
Subjective Date of Service: 07/03/19 Interval History: Feels well. Episode of nausea yesterday but resolved No abdominal pain Feels constipated Objective Active Medications: Acetaminophen (Tylenol Tab*) 650 mg PO Q8H PRN PRN Reason: MILD PAIN or TEMP > 100.4 Last Admin: 07/03/19 01:22 Dose: 650 mg Duloxetine HCl (Cymbalta Cap*) 60 mg PO DAILY [facility] Last Admin: 07/03/19 08:50 Dose: 60 mg Enoxaparin Sodium (Lovenox(*)) 90 mg SUBCUT Q12H [facility] Last Admin: 07/03/19 06:33 Dose: 90 mg Sodium Chloride (Ns 0.9% 1000 Ml) 1,000 mls @ 100 mls/hr IV PER RATE [facility] Last Admin: 07/03/19 10:38 Dose: 100 mls/hr Methylphenidate HCl (Ritalin Tab*) 5 mg PO BID@0900,1500 [facility] Last Admin: 07/03/19 08:56 Dose: 5 mg Metoprolol Succinate (Toprol Xl Tab*) 25 mg PO DAILY [facility] Last Admin: 07/03/19 08:50 Dose: 25 mg Multivitamins ( Vitamin Tab*) 1 tab PO DAILY [facility] Last Admin: 07/03/19 08:49 Dose: 1 tab Ondansetron HCl (Zofran Inj*) 4 mg IV Q6H PRN PRN Reason: NAUSEA Pantoprazole Sodium (Protonix Tab*) 40 mg PO DAILY [facility] Last Admin: 07/03/19 08:49 Dose: 40 mg Polyethylene Glycol/Electrolytes (Miralax*) 17 gm PO DAILY PRN PRN Reason: CONSTIPATION Last Admin: 07/03/19 08:56 Dose: 17 gm Prednisone (Deltasone Tab*) 40 mg PO DAILY [facility] Last Admin: 07/03/19 08:50 Dose: 40 mg Trazodone HCl (Desyrel Tab*) 100 mg PO BEDTIME [facility] Last Admin: 07/02/19 21:17 Dose: 100 mg Vital Signs - 8 hr 07/03/19 07/03/19 07/03/19 05:22 05:30 05:45 Temperature Pulse Rate 90 88 98 Respiratory 27 15 24 Rate Blood Pressure 113/70 125/76 122/80 (mmHg) O2 Sat by Pulse 92 94 92 Oximetry 07/03/19 07/03/19 07/03/19 06:00 06:15 06:45 Temperature Pulse Rate 98 87 98 Respiratory 23 17 23 Rate Blood Pressure 137/84 115/77 125/74 (mmHg) O2 Sat by Pulse 93 94 93 Oximetry 07/03/19 07/03/19 07/03/19 06:49 07:00 07:15 Temperature Pulse Rate 110 93 Respiratory 20 16 24 Rate Blood Pressure 126/82 135/88 (mmHg) O2 Sat by Pulse 95 93 Oximetry 07/03/19 07/03/19 07/03/19 07:45 07:55 08:00 Temperature 97.2 F Pulse Rate 101 93 Respiratory 13 18 Rate Blood Pressure 119/71 123/64 (mmHg) O2 Sat by Pulse 95 93 95 Oximetry 07/03/19 07/03/19 07/03/19 08:15 08:25 08:30 Temperature Pulse Rate 97 101 Respiratory 25 26 Rate Blood Pressure 127/82 128/83 (mmHg) O2 Sat by Pulse 95 95 93 Oximetry 07/03/19 07/03/19 07/03/19 08:45 09:00 09:15 Temperature Pulse Rate 103 108 95 Respiratory 25 23 26 Rate Blood Pressure 126/81 129/81 (mmHg) O2 Sat by Pulse 93 92 94 Oximetry 07/03/19 07/03/19 09:30 10:47 Temperature 97.8 F Pulse Rate 97 87 Respiratory 31 19 Rate Blood Pressure 128/83 128/63 (mmHg) O2 Sat by Pulse 93 95 Oximetry Oxygen Devices in Use Now: None Appearance: jaundiced, NAD Eyes: PERRLA, - - icterus Ears/Nose/Mouth/Throat: NL Teeth, Lips, Gums, Clear Oropharnyx Neck: NL Appearance and Movements; NL JVP, Trachea Midline Respiratory: Symmetrical Chest Expansion and Respiratory Effort, Clear to Auscultation Cardiovascular: RRR Abdominal: - - soft, NT, mild distention, Extremities: - - 1+ le edema Neurological: Alert and Oriented x 3 Result Diagrams: 07/03/19 05:21 07/03/19 05:21 Microbiology and Other Data: Microbiology 07/01/19 22:44 Nasal Screen MRSA (PCR) - Final Nasal Mrsa Not Detected Assess/Plan/Problems-Billing Assessment: 44 yo F h/o EtOH use disorder with recent cessation, DM2, HTN p/w hyponatremia, hyperbilirubinemia - Patient Problems (1) Hyponatremia Comment: Suspect multifactor Low effective circulating volume (high ADH state) from cirrhosis as well as true volume depletion in setting of alcohol use Improved with NS - additional 1 L NS bolus and recheck this afternoon. Continue NS at 100cc/hr overnight if appropriate correction Urine concentrated and YRN support volume depletion LE edema in setting of cirrhosis (2) Portal vein thrombosis Comment: US c/w portal vein thrombosis but CT abd/pelvis not consistent with thrombosis Portal vein US addended to report NO thormbosis but c/w low flow state Discontinued full dose lovenox (3) Hyperbilirubinemia Comment: Suspect in setting of alcoholic hepatitis Doubt SBP c/w prednisone, trend daily (4) Alcohol use disorder Comment: not in withdrawal reports last drink around 06/18 declining SW support (5) YRN (acute kidney injury) Priority: High Comment: imrpoving with fluids suspect pre-renal received contrast conitor for continued improvement (6) Diabetes Comment: Add HbA1c today - 5.9% (pre-diabetes) (7) DVT prophylaxis Comment: lovenox
[2019-07-03 14:54] LABS: BUN/Creatinine Ratio 23.9 (8-20); Calcium 7.3 mg/dL (8.6-10.3); EGFR African American 84.9 (>60); EGFR Non-African American 70.1 (>60); Potassium 3.5 mmol/L (3.5-5.0)
--- NOTE | 2019-07-03 17:08 | CONS ---
CC: Dr. Artie Aguilar; Dr. Julita Mcdaniel* GASTROENTEROLOGY CONSULT REPORT: DATE OF CONSULT: 07/03/19 REQUESTING PROVIDER: Dr. Artie Aguilar. PRIMARY CARE PROVIDER: Dr. Julita Mcdaniel. REASON FOR CONSULT: Concern for portal vein thrombosis. HISTORY OF PRESENT ILLNESS: Ms. 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 History obtained from the patient as well as admitting H and P. The patient reports that she has had a diagnosis of cirrhosis for several years. 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 Alcohol use history remains a bit unclear as patient minimizes her use when asked. She notes that she had been drinking heavily in the month of June as she has found out that her ex- was quite ill and ultimately . She believes he from complications of alcoholism. She is unable to estimate how much she was drinking because she said that she was continuously sipping from a bottle of rum. Last use of alcohol was on 06/18/19. She presented to the ED after noticing increasing jaundice without other significant signs or symptoms. In the ED, she was noted to have bilirubin of 18.9. Sodium was also quite low with a ying this hospitalization of 115. She was initially admitted to the ICU for the hyponatremia and then transferred to the floor as her sodium improved to 125 today. Initial ultrasound during this admission demonstrated partial thrombosis of the main portal vein extending into the right and left portal veins. Lovenox was started and GI was consulted. A contrasted CT scan was requested to help clarify extent and acuity of clot. The CT abdomen and pelvis with IV contrast was obtained yesterday afternoon and demonstrated enlarged portal vein without thrombosis. Per the CT report, the prior ultrasound findings were felt to be artifactual due to slow flow. Small to moderate ascites was noted on the CT scan. A followup portal vein ultrasound was obtained given the discrepancy between the CT and ultrasound. Initially, this report also again commented on a persistent main and right portal vein occluding thrombosis. I discussed the case with on-call radiologist, Dr. Jimenez. He reviewed both the CT scan and the ultrasound. It is his opinion that the ultrasound findings do not represent thrombosis. He feels that the ultrasound is demonstrating quite slow flow through the portal vein as would be expected in someone with cirrhosis. On interview, Ms. Tang reports some constipation. Her last bowel movement was 2 days ago and then a small hard stool earlier today. She describes feeling bloated with abdominal distention. This is a new symptom for her. She denies any significant abdominal pain or nausea, vomiting. Denies any history of GI bleeding. No fevers, chills. No confusion. She mentions that she has chronic balance issues related to the central pontine myelinolysis episode in 2016. She indicates that she is not planning on drinking any longer after she is discharged as she has a 17- and 19-year-old who depend on her particularly after her ex-'s recent . PAST MEDICAL HISTORY: 1. Alcohol abuse. 2. Alcoholic cirrhosis. 3. Diabetes type 2. 4. Central pontine myelinolysis in 2016. 5. Hypertension. 6. History of intranasal heroin abuse. PAST SURGICAL HISTORY: None. HOME MEDICATIONS: 1. Duloxetine 60 mg daily. 2. Omeprazole 20 mg daily. 3. Metoprolol succinate 25 mg daily. 4. vitamins. 5. Methylphenidate 5 mg twice daily. 6. Trazodone 100 mg at bedtime. ALLERGIES: To IBUPROFEN, NALTREXONE, and PENICILLIN. FAMILY HISTORY: Father with testicular cancer and diabetes. Grandmother with Alzheimer's. No known GI or liver disease. SOCIAL HISTORY: The patient is a light smoker (10 cigarettes a day). History of heavy alcohol use, which the patient is unable to quantify. Las drink of alcohol was on 06/18/19. History of heroin intranasal use, but none recent. The patient is on disability. Two children, age 17 and age 19. REVIEW OF SYSTEMS: A complete review of systems is negative except as mentioned above. PHYSICAL EXAM: Vital Signs: Afebrile, heart rate 90s to 100s, blood pressure 128/63, 95% on 2 L of oxygen. General: Jaundiced, middle-aged woman. No acute distress. HEENT: Mucous membranes moist. Cardiovascular: Regular rate and rhythm. Pulmonary: Breathing comfortably. Abdomen: Softly distended with fluid wave. Nontender abdomen. Positive bowel sounds. Extremities: Pitting edema. Skin: Jaundiced. Neuro: A and O x3. No obvious encephalopathy on interview. DIAGNOSTIC STUDIES/LAB DATA: Labs reviewed. White count 12.5, hemoglobin 12.8 , hematocrit 36, platelet count 94. INR 1.56, PTT 22.7. Sodium 125, chloride 93, creatinine 0.93. Bilirubin 13.2, AST 191, ALT 107, alk phos 200. Imaging reviewed extensively in the HPI. Briefly, an abdominal ultrasound on suggestive of a portal vein thrombosis. Followup CT abdomen and pelvis was read as enlarged portal vein without clots. Suspicion was that ultrasound was dissecting artifact related to slow flow. Repeat ultrasound with Doppler initially read again as an occlusive thrombus in the portal vein. Re-read by Dr. Jimenez does not identify a portal vein thrombosis. The suspicion again is felt that this is artifact related to slow flow through the portal vein. On imaging, there has been a note made of poot-dg-alprrvce ascites. There is also note made on the CT of enlarged heterogeneous liver with scattered areas of decreased attenuation consistent with diffuse hepatocellular disease. There was mass effect on the IVC and hepatic vein suggestive of hepatitis or mass. Further workup with MRI of the liver recommended. Mild thickening of the wall of the ascending colon noted. IMPRESSION AND RECOMMENDATIONS: Ms. Tang is a 44-year-old woman with a history of alcoholism and presumed alcoholic cirrhosis and history of central pontine myelinolysis in the setting of hyponatremia, who is admitted with severe hyponatremia and alcoholic hepatitis. The patient's severe hyponatremia has gradually improved with most recent sodium level of 125. The patient's baseline sodium is in the mid 130s. She has a significantly elevated bilirubin as well as AST greater than ALT. The combination of her labs is quite suspicious for alcoholic hepatitis. Imaging was suggestive of portal vein thrombosis, but more in depth discussion with Radiology feels that this is unlikely to be the case. The patient appears to have quite slow flow through her portal veins in the setting of cirrhosis without evidence of an obvious thrombus seen. 1. Alcoholic hepatitis in the setting of alcoholic cirrhosis: The patient's discriminant function is elevated at 62.4. In the absence of infection, corticosteroid therapy is warranted. MELD score is 29, which is likely influenced by the acute alcoholic hepatitis as well as the severe hyponatremia. Both of these scores indicate that the patient's liver disease is quite severe with a high risk of complications including mortality. A. Agree with corticosteroid therapy. We would recommend prednisolone 40 mg daily over prednisone if possible. Prednisone requires conversion to prednisolone in the liver, which can be impaired in the setting of active hepatitis. B. Continue to monitor CBC, comp, and INR daily. Primary team managing the patient's hyponatremia very closely. We would calculate Lille score on day 7 of steroids to determine if they should be continued. C. We would hold on diuretics for now for the ascites in the setting of the significant hyponatremia. We will continue to monitor. Low threshold for diagnostic paracentesis to rule out infection and assess fluid protein if the patient develops any symptoms suspicious for infection. D. No signs of overt encephalopathy at this point. We will continue to monitor. E. The patient should be seen by an outpatient dental assistant instructor. She should undergo EGD for variceal screening. We will request followup in the outpatient setting after discharge. F. No portal vein thrombosis definitively seen on imaging. We would not anticoagulate at this point given this information. G. Once the patient's sodium level has improved, I would consider obtaining MRI liver with and without contrast given the possible mass effect seen on the CT. Suspect this is related to hepatitis, but it is important to follow up. Can be deferred to the outpatient setting depending on clinical course. H. Complete cessation of alcohol use is very important for this patient given her severe underlying liver disease. She states that she is not interested in drinking anymore after discharge, but I think having a relapse prevention program or plan in place would be advisable. We will defer to primary team and Social Work to discuss further. 2. Abnormal colon on CT: There is possible ascending colon thickening or colitis noted on the CT. I suspect this is related to hypoalbuminemia as opposed to an infectious or inflammatory colitis. The patient is not having diarrheal symptoms. A. We would recommend MiraLAX or Colace daily given constipation complaints. B. Monitor for now. Thank you very much for this consult. GI will continue to follow along peripherally. Please notify GI upon discharge so that followup can be appropriately scheduled. [id number]/[facility] #: [id number] DEJUAN
[2019-07-03] MEDS: traZODone TAB* 100 MG PO SCH (21:01)
[2019-07-04] MEDS: Polyethylene Glycol 3350* 17 GM PACKET PO PRN (03:34)
[2019-07-04 05:35] LABS: INR 1.55 (0.82-1.09)
[2019-07-04 05:44] LABS: Albumin 2.4 g/dL (3.2-5.2); Albumin/Globulin Ratio 0.8 (1-3); BUN/Creatinine Ratio 23.7 (8-20); Calcium 7.4 mg/dL (8.6-10.3); EGFR African American 100.5 (>60); EGFR Non-African American 83.1 (>60); Globulin 3.2 g/dL (2-4); Indirect Bilirubin 3.8 mg/dL (0.3-1.0); Magnesium 1.7 mg/dL (1.9-2.7); Potassium 3.3 mmol/L (3.5-5.0); Total Bilirubin 10.3 mg/dL (0.2-1.0); Total Protein 5.6 g/dL (6.4-8.9)
[2019-07-04] MEDS: Enoxaparin(*) 40 MG/0.4 ML SYR SUBCUT SCH (07:19)
[2019-07-04] MEDS: Metoprolol Succinate XL TAB* 25 MG PO SCH (07:20)
[2019-07-04] MEDS: Pantoprazole TAB * 40 MG TAB PO SCH (07:20)
[2019-07-04] MEDS: Methylphenidate TAB* 5 MG PO SCH ×2 (07:25→14:42)
[2019-07-04] MEDS: Prenatal Vitamin TAB PO SCH (07:25)
[2019-07-04] MEDS: DULoxetine DR CAP* 60 MG CAP.DR PO SCH (07:25)
[2019-07-04] MEDS: methylPREDNISolone SOD 40 MG* 1 ML VIAL IV SCH (10:06)
[2019-07-04] MEDS ORDERED: Magnesium CITRATE* 300 ML BTL PO ONE (10:25)
--- NOTE | 2019-07-04 10:49 | PN ---
Subjective Date of Service: 07/04/19 Interval History: Pt c/o constipation and abd distention,denies pain. requests nicotine replacement tx c/o leg edema and refuses to have more IVF Objective Active Medications: Acetaminophen (Tylenol Tab*) 650 mg PO Q8H PRN PRN Reason: MILD PAIN or TEMP > 100.4 Last Admin: 07/03/19 01:22 Dose: 650 mg Duloxetine HCl (Cymbalta Cap*) 60 mg PO DAILY [facility] Last Admin: 07/04/19 07:25 Dose: 60 mg Enoxaparin Sodium (Lovenox(*)) 40 mg SUBCUT Q24H [facility] Last Admin: 07/04/19 07:19 Dose: 40 mg Methylphenidate HCl (Ritalin Tab*) 5 mg PO BID@0900,1500 [facility] Last Admin: 07/04/19 07:25 Dose: 5 mg Methylprednisolone Sodium Succinate (Solu-Medrol 40 Mg) 32 mg IV DAILY [facility] Last Admin: 07/04/19 10:06 Dose: 32 mg Metoprolol Succinate (Toprol Xl Tab*) 25 mg PO DAILY [facility] Last Admin: 07/04/19 07:20 Dose: 25 mg Multivitamins ( Vitamin Tab*) 1 tab PO DAILY [facility] Last Admin: 07/04/19 07:25 Dose: 1 tab Nicotine (Nicotine Patch 21 Mg/24 Hr*) 1 patch TRANSDERM DAILY [facility] Nicotine Polacrilex (Nicotine Gum*) 4 mg PO Q2H PRN PRN Reason: CRAVING Ondansetron HCl (Zofran Inj*) 4 mg IV Q6H PRN PRN Reason: NAUSEA Last Admin: 07/04/19 03:24 Dose: 4 mg Pantoprazole Sodium (Protonix Tab*) 40 mg PO DAILY [facility] Last Admin: 07/04/19 07:20 Dose: 40 mg Polyethylene Glycol/Electrolytes (Miralax*) 17 gm PO DAILY PRN PRN Reason: CONSTIPATION Last Admin: 07/04/19 03:34 Dose: 17 gm Trazodone HCl (Desyrel Tab*) 100 mg PO BEDTIME [facility] Last Admin: 07/03/19 21:01 Dose: 100 mg Vital Signs - 8 hr 07/04/19 07/04/19 03:35 07:29 Temperature 97.3 F Pulse Rate 99 Respiratory 20 18 Rate Blood Pressure 124/72 (mmHg) O2 Sat by Pulse 93 Oximetry Oxygen Devices in Use Now: None Appearance: 44 yo F in nAD, aAOx3 Eyes: No Scleral Icterus, PERRLA Ears/Nose/Mouth/Throat: NL Teeth, Lips, Gums, Mucous Membranes Moist Neck: NL Appearance and Movements; NL JVP, Trachea Midline Respiratory: Symmetrical Chest Expansion and Respiratory Effort, Clear to Auscultation Cardiovascular: NL Sounds; No Murmurs; No JVD, RRR Abdominal: - - distended, soft, NT, BS+, tympanic Lymphatic: No Cervical Adenopathy Extremities: - - b/l LE's +1 piting edema Skin: No Rash or Ulcers, No Nodules or Sclerosis Neurological: Alert and Oriented x 3, NL Muscle Strength and Tone Result Diagrams: 07/03/19 05:21 07/04/19 04:59 Microbiology and Other Data: Microbiology 07/01/19 22:44 Nasal Screen MRSA (PCR) - Final Nasal Mrsa Not Detected Assess/Plan/Problems-Billing Assessment: 44 yo F h/o EtOH use disorder with recent cessation, DM2, HTN p/w hyponatremia, hyperbilirubinemia - Patient Problems (1) Alcoholic hepatitis Comment: LFT's improving appreciate GI consult Switching Prednisone to Solu Medrol-prednisolone not on formulary (2) YRN (acute kidney injury) Comment: resolved (3) Alcohol use disorder Comment: not in withdrawal reports last drink around 06/18 declining SW support (4) Hyponatremia Comment: Suspect multifactoriar. improving will stop IBF due top peripheral edema and monitor Improved with NS Urine concentrated and YRN support volume depletion (5) Portal vein thrombosis Comment: radiology studies were clarified to low portal vein flow, but no thrombosis (6) DVT prophylaxis Comment: lovenox cont to monitor thrombocytopenia
[2019-07-04] MEDS: Nicotine* 4MG (FRUIT FLAVOR) GUM PO PRN ×3 (11:31→20:11)
[2019-07-04] MEDS: Nicotine PATCH 21 MG/24 HR* PATCH TRANSDERM SCH (11:31)
[2019-07-04] MEDS: Simethicone TAB* 80 MG TAB.CHEW PO PRN (14:57)
[2019-07-04] MEDS: traZODone TAB* 100 MG PO SCH (21:05)
[2019-07-05 06:32] LABS: Albumin 2.3 g/dL (3.2-5.2); Albumin/Globulin Ratio 0.8 (1-3); BUN/Creatinine Ratio 26.1 (8-20); Calcium 7.5 mg/dL (8.6-10.3); EGFR African American 112.4 (>60); EGFR Non-African American 92.9 (>60); Globulin 2.9 g/dL (2-4); Potassium 3.4 mmol/L (3.5-5.0); Total Bilirubin 8.2 mg/dL (0.2-1.0); Total Protein 5.2 g/dL (6.4-8.9)
[2019-07-05 07:19] VITALS: BP 135/75
[2019-07-05] MEDS ORDERED: Potassium Chlor TAB* 20 MEQ TAB.ER PO ONE (07:23)
[2019-07-05] MEDS: DULoxetine DR CAP* 60 MG CAP.DR PO SCH (07:55)
[2019-07-05] MEDS: Metoprolol Succinate XL TAB* 25 MG PO SCH (07:55)
[2019-07-05] MEDS: Prenatal Vitamin TAB PO SCH (07:55)
[2019-07-05] MEDS: Pantoprazole TAB * 40 MG TAB PO SCH (07:55)
[2019-07-05] MEDS: methylPREDNISolone SOD 40 MG* 1 ML VIAL IV SCH (07:56)
[2019-07-05] MEDS: Enoxaparin(*) 40 MG/0.4 ML SYR SUBCUT SCH (07:56)
[2019-07-05] MEDS: Nicotine PATCH 21 MG/24 HR* PATCH TRANSDERM SCH (07:56)
[2019-07-05] MEDS: Nicotine* 4MG (FRUIT FLAVOR) GUM PO PRN (08:11)
[2019-07-05] MEDS: Methylphenidate TAB* 5 MG PO SCH (08:11)
[2019-07-05] MEDS: Simethicone TAB* 80 MG TAB.CHEW PO PRN (08:11)
--- NOTE | 2019-07-05 23:20 | DS ---
CC: Dr. Julita Mcdaniel; Dr. Elizabeth; Dr. Adams * DISCHARGE SUMMARY: DATE OF ADMISSION: 07/01/19 DATE OF DISCHARGE: 07/05/19 PRIMARY CARE PROVIDER: Dr. Julita Mcdaniel. DISPOSITION AT DISCHARGE: Home. CONDITION AT DISCHARGE: Stable. DISCHARGE DIAGNOSES: 1. Jaundice due to acute alcoholic hepatitis. 2. Acute kidney injury due to above. SECONDARY DIAGNOSES: 1. History of alcohol abuse, last drink was approximately 2 weeks ago. 2. History of diabetes type 2 with current hemoglobin A1c at 5.9. 3. History of central pontine myelinolysis. 4. Hyponatremia, multifactorial. 5. Peripheral neuropathy. 6. Hypertension. MEDICATIONS AT DISCHARGE: Include: 1. Cymbalta 60 mg daily. 2. Ritalin 5 mg b.i.d. 3. Toprol-XL 25 mg daily. 4. Omeprazole 20 mg daily. 5. multivitamin 1 tablet daily. 6. Trazodone 100 mg at bedtime. 7. Furosemide 20 mg every other day. 8. Magnesium citrate 150 mL, use 1 bottle p.o. as needed for severe constipation once. 9. Prednisolone 40 mg daily in an oral solution, dispensed 22 days, to be tapered down after that by primary care provider for remaining 16 days and the recommendation of taper by 10 mg over the course over the next 16 days down to 5 mg daily and then discontinue. 10. Aldactone 25 mg daily. The patient is recommended to follow up with complete metabolic panel in 1 week with the results to be sent to Dr. Elizabeth and Dr. Mcdaniel. CONSULTATIONS DURING THE HOSPITAL STAY: Dr. Elizabeth from Gastroenterology. LABORATORY DATA AND STUDIES PERFORMED DURING THE HOSPITAL STAY: On 07/03/19, white blood cell count of 12.5, hemoglobin 12.8, hematocrit of 36, and platelets of 94. MCV was 102. Sodium was 128, potassium 3.4, chloride 100, carbon dioxide 18, BUN 69. The patient's hemoglobin A1c was noted to be 5.9 on 07/02/19. Bilirubin down to 8.2 from 18 at admission. AST of 171, ALT of 124, alkaline phosphatase of 193. The patient's TSH at admission was 1.28. The patient's acute hepatitis panel was negative. Abdomen and pelvis CT obtained on admission: Small dependent bilateral lower lobe infiltrates and small right pleural effusion. Enlarged heterogenous liver with scattered areas of decreased attenuation consistent with diffuse hepatocellular disease. There is some mass effect on the inferior vena cava and hepatic vein suggesting possibility of hepatitis or a mass. This can be further evaluated with an MRI of the liver without and with contrast. The portal vein is enlarged, although no portal vein thrombosis is seen to correlate with prior ultrasound findings, which may have been artifactual due to slow flow. Mild to moderate amount of ascites. Mild thickening of the wall of the ascending colon suggesting the possibility of a colitis. Delayed excretion of renal contrast, recommend hydration. Portal vein ultrasound obtained on 07/02/19, impression: "Persistent main and right portal vein occluding thrombus with abnormal left portal vein waveform consistent with portal hypertension." Please note that Dr. Jimenez addended the report and noted "although there is no color flow signal of the analysis of portal vein, calipers demonstrate slight variation of the venous waveform consistent with slow flow as would be expected in patient with cirrhosis. This is in keeping with the contrast filling the portal veins on 07/01/19 CT of the abdomen and pelvis. There is no ultrasound or CT evidence of portal vein thrombosis." HOSPITALIZATION COURSE: Maria Luisa Tang is a 44-year-old female with history of alcoholism, who stopped drinking approximately 3 days prior presenting to the ER with jaundice. The patient also was noted to have mild to moderate ascites. She had significant level of discriminant function at 62 and MELD score of 29. She was diagnosed with acute alcoholic hepatitis and treated with steroids. Dr. Flory Morales saw the patient in evaluation and recommended continuation of prednisolone would be better than prednisone due to need of hepatic conversion of prednisone. The patient also was noted to be severely hyponatremic at admission with sodium level of 118 and by the time of discharge , her sodium level equalized to 128. She requested to have her IV fluids stopped 2 days prior to her discharge due to peripheral edema. With the aid of steroids, the patient's bilirubin dropped dramatically from 18 at admission to 8 at the time of discharge. The patient feels much better, and apart from slight peripheral edema, she has no other complaints and she is ready to go home. At the time of discharge, I briefly discussed the case with Dr. Adams who is the sand tester on-call. The patient is going to be continued on prednisolone for remaining 22 days to complete 28 days of treatment that is prednisolone 40 mg daily. The patient is to start Aldactone 25 mg daily and Lasix 20 mg every other day. Follow up complete metabolic panel in a week. The patient is also to be tapered off her prednisolone after a total of 28 days of treatment, out of which 5 days included the hospitalization. The taper would include tapering it down by 10 mg over a 16-day period. The patient is recommended to follow up with her primary care provider later on in the month for another prescription of prednisolone taper. The patient is also recommended to follow up with Dr. Elizabeth in regards of an abnormality noted on a CT. She would likely require a liver MRI as well as a colonoscopy. Please note that the patient was noted to have possibility of portal vein thrombosis on portal vein ultrasound, which was later on clarified by Dr. Jimenez from Radiology. The patient has low portal vein flow consistent with liver cirrhosis, but no portal vein thrombosis. She was transiently anticoagulated and that was discontinued. PHYSICAL EXAMINATION: At the time of discharge, blood pressure of 135/75, heart rate of 109 and regular, respiratory rate 22, oxygen saturation 94% on room air, temperature 98. General: The patient is a pleasant 44-year-old female who is in no acute distress. The patient is alert and oriented x3. HEENT: Head: Atraumatic, normocephalic. Eyes: Pupils are equal and reactive to light and accommodation. Scleral icterus noted. Neck: Supple. No JVD. No bruits bilaterally. Cardiovascular: Regular rate and rhythm. No murmur. Respiratory: Clear to auscultation bilaterally. Abdomen: Soft, nontender. Bowel sounds are present in all 4 quadrants. Extremities: There is trace bilateral pedal edema. Pulses are +2 bilaterally. There is no clubbing or cyanosis. Neuro Evaluation: Speech clear. Cranial nerves II through XII grossly intact. Motor strength is 5/5 bilaterally. Once again at discharge, the patient is recommended to follow up with Dr. Mcdaniel or physician covering for Dr. Mcdaniel in approximately 4 to 7 days. The patient is recommended to follow up with Dr. Elizabeth approximately in 2 to 4 weeks. The patient is recommended to have complete metabolic panel drawn in 7 days to be sent to Dr. Mcdaniel and Dr. Elizabeth. Please note that this is a short summary of the patient's hospitalization. Please refer to further medical records for details. TIME SPENT: Approximately 45 minutes were spent on the patient's discharge. [id number]/[facility] #: [id number] DEJUAN
== END 2019-07-05 11:45 | disposition home or self-care (01) | DRG 442 ==
LOC: ED 10:04 → MED 16:13 → ICU 21:59 → MED 07-03 10:34
PROVIDERS: ADMIT Internal Medicine; ATTEND Internal Medicine
DX: R17 Unspecified jaundice (principal); N17.9 Acute kidney failure, unspecified; E87.1 Hypo-osmolality and hyponatremia; G37.2 Central pontine myelinolysis; K70.31 Alcoholic cirrhosis of liver with ascites; K70.11 Alcoholic hepatitis with ascites; F10.20 Alcohol dependence, uncomplicated; Y90.0 Blood alcohol level of less than 20 mg/100 ml; E11.42 Type 2 diabetes mellitus with diabetic polyneuropathy; I10 Essential (primary) hypertension; F11.11 Opioid abuse, in remission; F17.210 Nicotine dependence, cigarettes, uncomplicated; Z79.899 Other long term (current) drug therapy; Z88.6 Allergy status to analgesic agent; Z88.0 Allergy status to penicillin; Z88.8 Allergy status to other drugs, medicaments and biological substances; Z83.3 Family history of diabetes mellitus; Z80.43 Family history of malignant neoplasm of testis
CPT/HCPCS: 36415; 74177; 76700; 80048; 80053; 80061; 80074; 80076; 80320; 81003; 82247; 83036; 83690; 83735; 83935; 84300; 84443; 84702; 85025; 85060; 85610; 87641; 90686; 93975; 99284; A9270-GY; G0480; J1650; J2405; J2920; J3480; J7512; Q9967